=== PATIENT | male | born 1965 | race African-American/Black ===

== ENCOUNTER 2019-03-21 21:37 | Emergency (ER) | payer OTHER ==
[~2019-03-21] VITALS: Ht 172.7 cm; Wt 81.6 kg
--- NOTE | 2019-03-21 21:44 | NUR ---
ED Nurse Note: pt presents to ED via [facility] for alcohol intoxication. pt states that he drank 2-3 beers and that he hit the R side of his head and is now experiencing visual changes. pt does not recall when he hit his head. pt's speech is slurred and he seems to be talking to himself in bed, occasionally yelling and cursing. pt is also c/o N/V
[2019-03-21 21:51] VITALS: BP 140/90
--- NOTE | 2019-03-21 22:50 | Emergency Room Report ---
History of Present Illness General Chief Complaint: Alcohol Intoxication Source: Patient, EMS Present Illness HPI 54-year-old male history of alcohol abuse history of liver cirrhosis presents with acute alcohol intoxication, patient was found drinking he states that he hit the right side of his head, unknown if LOC, patient is currently a poor historian, starts yelling, aggravating factors appear to be alcohol, alleviating factors tend to be not drinking severity is moderate, constant. Patient also reports right head pain achy in nature no aggravating leaving factors severity is mild, constant, unknown when he hit his head. Patient states he was drinking earlier today Allergies: Coded Allergies: No Known Allergies (Unverified , 03/21/19) Patient History Limited by: medical condition - currently intoxicated Past Medical History: see triage record Social History: Reports: smoking, alcohol use, drug use Reviewed Nursing Documentation: PMH: Agreed; PSxH: Agreed Nursing Documentation-PMH Past Medical History: No Stated History Review of Systems All Other Systems: limited - Currently intoxicated Physical Exam Vital Signs Date Time Temp Pulse Resp B/P (MAP) Pulse Ox O2 Delivery O2 Flow Rate FiO2 03/21/19 21:29 98.4 88 16 140/90 (107) 97 Sp02 EP Interpretation: reviewed, normal General Appearance: well appearing, no apparent distress, alert Head: normocephalic, atraumatic, other - Subjective tenderness on the right side no evidence of trauma Eyes: bilateral eye PERRL, bilateral eye EOMI ENT: uvula midline, moist mucus membranes Neck: full range of motion, supple, thyroid normal, supple/symm/no masses Respiratory: lungs clear, no respiratory distress, no retraction, no accessory muscle use Cardiovascular #1: normal peripheral pulses, regular rate, rhythm, no edema, no gallop, no murmur Gastrointestinal: non tender, soft, no guarding, no rebound Musculoskeletal: normal inspection Neurologic: alert, oriented x3 Psychiatric: mood/affect normal Skin: no rash, warm/dry Medical Decision Making Diagnostic Impression: Primary Impression: Acute alcoholic intoxication Qualified Codes: F10.920 - Alcohol use, unspecified with intoxication, uncomplicated ER Course 54-year-old male presents with acute alcohol intoxication, and possible closed head injury, will obtain CT scan, will allow patient to sober CT scan negative, patient allowed to sober, gait completely normal disposition home with return precautions CT/MRI/US Diagnostic Results CT/MRI/US Diagnostic Results : Impression Procedure: CT Head no Contrast EXAM: CT Head Without Intravenous Contrast CLINICAL HISTORY: FALL TECHNIQUE: Axial computed tomography images of the head/brain without intravenous contrast. CTDI is 63 mGy and DLP is 1332 mGy-cm. One or more of the following dose reduction techniques were used: automated exposure control, adjustment of the mA and/or kV according to patient size, use of iterative reconstruction technique. COMPARISON: No relevant prior studies available. FINDINGS: Brain: Unremarkable. No hemorrhage. No significant white matter disease. No edema. Ventricles: Unremarkable. No ventriculomegaly. Bones/joints: Unremarkable. No acute fracture. Soft tissues: Unremarkable. Sinuses: Unremarkable as visualized. No acute sinusitis. Mastoid air cells: Unremarkable as visualized. No mastoid effusion. IMPRESSION: No acute intracranial abnormality. Dictated By: Lucho Sanchez DO Electronically Signed By: Lucho Sancehz DO Signed Date/Time 03/21/19 9381 CC: Eliazar Hernandez MD Last Vital Signs Date Time Temp Pulse Resp B/P (MAP) Pulse Ox O2 Delivery O2 Flow Rate FiO2 03/21/19 21:51 98.4 77 16 140/90 97 Disposition: HOME, SELF-CARE Condition: Stable Referrals: [facility]. [facility] Patient Instructions: Alcohol Use Disorder, Alcohol Intoxication, [id number] Additional Instructions: The patient was provided with discharge instructions, notified to follow-up with a primary care doctor and or specialist in the next 24-48 hours, and to return to the ED if they have worsening of their symptoms. Please note that this report is being documented using [employer] technology. This can lead to erroneous entry secondary to incorrect interpretation by the dictating instrument. Eliazar Hernandez MD Mar 21, 2019 22:50
--- NOTE | 2019-03-21 23:13 | Diagnostic Imaging Report ---
EXAM: CT Head Without Intravenous Contrast CLINICAL HISTORY: FALL TECHNIQUE: Axial computed tomography images of the head/brain without intravenous contrast. CTDI is 63 mGy and DLP is 1332 mGy-cm. One or more of the following dose reduction techniques were used: automated exposure control, adjustment of the mA and/or kV according to patient size, use of iterative reconstruction technique. COMPARISON: No relevant prior studies available. FINDINGS: Brain: Unremarkable. No hemorrhage. No significant white matter disease. No edema. Ventricles: Unremarkable. No ventriculomegaly. Bones/joints: Unremarkable. No acute fracture. Soft tissues: Unremarkable. Sinuses: Unremarkable as visualized. No acute sinusitis. Mastoid air cells: Unremarkable as visualized. No mastoid effusion. IMPRESSION: No acute intracranial abnormality.
--- NOTE | 2019-03-22 01:34 | NUR ---
ED Nurse Note: pt appears to be asleep, in bed with eyes closed. urinal and blankets provided for comfort. no acute distress is noted at this time. will continue to monitor
[2019-03-22 01:39] VITALS: BP 137/89
--- NOTE | 2019-03-22 05:17 | NUR ---
ER DISCHARGE NOTE: Patient cleared for DC by Dr. Hernandez. Patient verbalized understanding of DC instructions. all medical devices such as ID band removed. patient is mentating at baseline, ambulates with steady gait, pt left with all belongings Addendum: 03/22/19 at 0517 by ESTRELLA pt was provided with a sandwich and juice upon d/c. pt declined resource list and is dressed in weather appropriate clothing
[2019-03-22 05:30] VITALS: BP 137/89
== END 2019-03-22 05:30 | disposition home or self-care (01) ==
LOC: EDBD 21:37 → EMR 21:59
DX: F10.920 Alcohol use, unspecified with intoxication, uncomplicated (principal); F17.200 Nicotine dependence, unspecified, uncomplicated; F19.90 Other psychoactive substance use, unspecified, uncomplicated
CPT/HCPCS: 70450; Z7502; 99284

== ENCOUNTER 2019-03-24 21:37 | Emergency (ER) | payer OTHER ==
[~2019-03-24] VITALS: Ht 175.3 cm; Wt 85.7 kg
--- NOTE | 2019-03-24 21:40 | NUR ---
ED Nurse Note: PT GLORIA ALMEIDA RA 68 C/O SZ X2100. SZ WITNESSED BY [facility] WITH UNK DURATION. REPORT ETOH AND NONCOMPLIANCE WITH MED. PT IS AAOX4, BP 192/119, REPORTS BLURRY VISION, DENIES PAIN. ERMD AT BEDSIDE, NAD. WILL CONTINUE TO MONITOR PATIENT.
--- NOTE | 2019-03-24 21:54 | Emergency Room Report ---
History of Present Illness General Chief Complaint: Seizure Source: Patient Present Illness HPI This is a 54-year-old male with history of alcohol abuse. He also has cirrhosis and pancreatitis. He presents with chief complaint of "seizure." Patient was on the street and bystander called 911. EMS said that he was "out of it. Patient has no history of seizure. Admits to drinking alcohol here. While being triaged, he was talking coherently without any issue. Per EMS, bystander called 911 because he was not acting right. There is no tonic-clonic seizure activity. There is no incontinence of bowel or urine. There is no oral trauma. Unknown duration. When I talked to the patient, he was just blinking his eyes refused to answer any question. He had no tonic-clonic seizure activity. When I try to open his eyes, he was shot on tight. When I try to move his arms he would fight against it. When I told him to stop acting , he started yelling that he is not acting and he is having a seizure. Allergies: Coded Allergies: No Known Allergies (Unverified , 03/21/19) Patient History Past Medical History: see triage record, old chart reviewed Past Surgical History: other Pertinent Family History: none Social History: Reports: alcohol use Immunizations: other Reviewed Nursing Documentation: PMH: Agreed; PSxH: Agreed Nursing Documentation-PMH Past Medical History: No Stated History Review of Systems Eye: Denies: eye pain, blurred vision ENT: Denies: ear pain, nose congestion, throat swelling Respiratory: Denies: cough, shortness of breath Cardiovascular: Denies: chest pain, palpitations Gastrointestinal: Denies: abdominal pain, diarrhea, nausea, vomiting Musculoskeletal: Denies: back pain, joint pain Skin: Denies: rash Neurological: Denies: headache, numbness Endocrine: Denies: increased thirst, increased urine Hematologic/Lymphatic: Denies: easy bruising All Other Systems: negative except mentioned in HPI Physical Exam Sp02 EP Interpretation: reviewed, normal General Appearance: well appearing, no apparent distress, alert, other - Intoxicated Head: normocephalic, atraumatic Eyes: bilateral eye PERRL, bilateral eye EOMI ENT: hearing grossly normal, normal pharynx Neck: full range of motion, supple, no meningismus Respiratory: chest non-tender, lungs clear, normal breath sounds Cardiovascular #1: regular rate, rhythm, no murmur Gastrointestinal: normal bowel sounds, non tender, no mass, no organomegaly, no bruit, non-distended Musculoskeletal: back normal, normal range of motion, gait/station normal Psychiatric: mood/affect normal Medical Decision Making Diagnostic Impression: Primary Impression: Alcohol intoxication Qualified Codes: F10.920 - Alcohol use, unspecified with intoxication, uncomplicated ER Course Patient presents with "seizure.". Is actions are incongruent with any seizure activity. He became defensive and broke out of his seizure when I told him it was not a seizure. He has no oral trauma. No incontinence of bowel or urine. Patient clinically is intoxicated. Will discharge home once he is more clinically sober. See no need for antiepileptic medication. Patient slept for an hour or so and then got up and said he wants to leave. He is walking around without any difficulty. No seizure activity in the ER. Status: improved Disposition: HOME, SELF-CARE Condition: Stable Additional Instructions: Abstain from alcohol. Follow-up with your doctor in 7 days. Go to rehab. Return if worse. Quan Gutiérrez MD Mar 24, 2019 21:54
[2019-03-24 21:56] VITALS: BP 192/114
[2019-03-24 22:20] VITALS: BP 163/77
--- NOTE | 2019-03-24 22:20 | NUR ---
ER DISCHARGE NOTE: Patient is cleared to be discharged per ERMD, pt is aox4, on room air, with stable vital signs. pt was given prescription instructions, pt was able to verbalize understanding, pt id band removed without complications. pt is able to ambulate with steady gait. pt took all belongings.
== END 2019-03-24 22:20 | disposition home or self-care (01) ==
LOC: EDBD 21:37 → EMR 22:20
DX: F10.129 Alcohol abuse with intoxication, unspecified (principal)
CPT/HCPCS: 99282

== ENCOUNTER 2019-05-05 02:22 | Emergency (ER) | payer OTHER ==
[~2019-05-05] VITALS: Ht 170.2 cm; Wt 70.3 kg
--- NOTE | 2019-05-05 02:26 | NUR ---
ED Nurse Note: Patient brought in by ambulance with complaints of seizure upon calling 911 for help. Patient is requesing keppra incessantly and appears to be post ichtal. Will continue to monitor for orders.
[2019-05-05 02:28] VITALS: BP 164/106
--- NOTE | 2019-05-05 02:36 | Emergency Room Report ---
History of Present Illness General Chief Complaint: Seizure Source: Patient Present Illness HPI 54-year-old male with a history of seizure. Also history of alcohol abuse. He presents with chief complaint of "seizure." He called 911 because he said he had a seizure. No witness. No trauma. No incontinence of bowel or urine. He called 911 several times in the past for the same thing. He was here in March for the same thing. On arrival, he will not open his eyes. He would blink them. Sometime he would answer questions. He was not cooperative. He would not talk. When I told him that I do not think he had a seizure and he should not be confused, he got mad and start talking normally. He his right that he does have seizure and take medicine for it. Explained to the patient that he does have a history of seizure but already had is not a seizure. Patient denies any pain. Denies any fever chills but no nausea no vomiting. 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 He told me that he is not intoxicated. COVID-19 risk:Travel to affect: No Allergies: Coded Allergies: No Known Allergies (Unverified , 03/21/19) Patient History Past Medical History: see triage record, old chart reviewed, seizures Past Surgical History: other Pertinent Family History: none Social History: Reports: alcohol use Immunizations: other Reviewed Nursing Documentation: PMH: Agreed; PSxH: Agreed Nursing Documentation-PMH Hx Seizures: Yes Review of Systems Eye: Denies: eye pain, blurred vision ENT: Denies: ear pain, nose congestion, throat swelling Respiratory: Denies: cough, shortness of breath Cardiovascular: Denies: chest pain, palpitations Gastrointestinal: Denies: abdominal pain, diarrhea, nausea, vomiting Musculoskeletal: Denies: back pain, joint pain Skin: Denies: rash Neurological: Denies: headache, numbness Endocrine: Denies: increased thirst, increased urine Hematologic/Lymphatic: Denies: easy bruising All Other Systems: negative except mentioned in HPI Physical Exam Vital Signs Date Time Temp Pulse Resp B/P (MAP) Pulse Ox O2 Delivery O2 Flow Rate FiO2 05/05/19 02:24 97.9 74 16 164/106 (125) 97 Room Air Vitals with high blood pressure Sp02 EP Interpretation: reviewed, normal General Appearance: well appearing, no apparent distress, alert Head: normocephalic, atraumatic Eyes: bilateral eye PERRL, bilateral eye EOMI ENT: hearing grossly normal, normal pharynx Neck: full range of motion, supple, no meningismus Respiratory: chest non-tender, lungs clear, normal breath sounds Cardiovascular #1: regular rate, rhythm, no murmur Gastrointestinal: normal bowel sounds, non tender, no mass, no organomegaly, no bruit, non-distended Musculoskeletal: back normal, normal range of motion, gait/station normal Psychiatric: mood/affect normal Medical Decision Making Diagnostic Impression: Primary Impression: Epileptic seizure, generalized Additional Impression: Alcohol abuse ER Course Presents with questionable seizure. I suspect is more alcohol related with intoxication in psychiatric issue. He does not appear to be postictal especially how fast he came out of his "confused" state. Last Vital Signs Date Time Temp Pulse Resp B/P (MAP) Pulse Ox O2 Delivery O2 Flow Rate FiO2 05/05/19 02:24 97.9 74 16 164/106 (125) 97 Room Air Status: improved Disposition: HOME, SELF-CARE Condition: Stable Patient Instructions: Seizure, Adult Additional Instructions: Stop drinking alcohol. Take your seizure medication. Follow-up with your doctor in 7 days but return if worse. Quan Gutiérrez MD May 05, 2019 02:36
[2019-05-05] MEDS ORDERED: levETIRAcetam 500mg/NS100ml 100 ML IVPB ONE (02:45)
--- NOTE | 2019-05-05 03:01 | NUR ---
ED Nurse Note: Pateint tolerated IV start at left AC well, 20g. Patient also tolerated IV anti-seizure medication well. Will continue to monitor for needs and discharge.
--- NOTE | 2019-05-05 04:32 | NUR ---
ED Nurse Note: Patient sleeping with occasional verbal outbursts, but no s/s of acute distress. Will continue to monitor unitl discharge to public transportation.
[2019-05-05 05:35] VITALS: BP 129/77
--- NOTE | 2019-05-05 05:42 | NUR ---
ER DISCHARGE NOTE: Patient is cleared to be discharged per ERMD, pt is aox4, on room air, with stable vital signs. pt was given dc and prescription instructions, pt was able to verbalize understanding, pt id band and iv site removed without complications. pt is able to ambulate with steady gait. pt took all belongings.
[2019-05-05 05:43] VITALS: BP 164/106
== END 2019-05-05 05:43 | disposition home or self-care (01) ==
LOC: EDBD 02:22 → EDUNIT# 02:22 → EMR 02:32
DX: G40.909 Epilepsy, unspecified, not intractable, without status epilepticus (principal); F10.10 Alcohol abuse, uncomplicated
CPT/HCPCS: 96374; J1953; Z7502; 99284